=== PATIENT | female | born 1970 | race Hispanic/Latino ===

== ENCOUNTER 2017-11-25 15:57 | Emergency (ER) | payer OTHER, SELFPAY ==
[2017-11-25 17:20] LABS: Absolute Lymphocytes (CBC) 1.7 K/uL (0.7-4.9); Absolute Monocytes 0.5 K/uL (0.1-1.3); Absolute Neutrophil 4.8 K/uL (1.8-8.0); Basophils % 0.4 % (0-1.3); Eosinophils % 0.9 % (0-4.4); Hematocrit 41.6 % (36.0-45.0); Lymphocytes % 24.3 % (15.3-44.8); MCH 33.2 pg (27.0-35.0); MCV 98.4 fL (80-100); Monocytes % 6.7 % (3.3-12.3); RBC Red Blood Cell Count 4.22 M/uL (3.86-4.86)
[2017-11-25 17:24] LABS: Protime INR 0.97
[2017-11-25 17:28] LABS: Urine Blood NEGATIVE (NEG); Urine Glucose NEGATIVE (NEG); Urine Protein NEGATIVE (NEG); Urine Specific Gravity >1.030 (1.005-1.030); Urine pH 5.5 (5.0-7.0)
[2017-11-25] MEDS ORDERED: MORPHINE 4 MG/ML SYR ONE (17:30)
[2017-11-25 17:31] LABS: Bicarbonate 29 mEq/L (21-31); Glucose Level 92 mg/dL (65-120); Lipase 26 U/L (22-51); Potassium 3.7 mEq/L (3.6-5.0); Sodium Level 140 mEq/L (135-145)
[2017-11-25] MEDS ORDERED: ONDANSETRON 4 MG/2 ML VIAL ONE (17:31)
[2017-11-25] MEDS ORDERED: NA CHLORIDE 0.9% 1,000 ML ONE (17:31)
--- NOTE | 2017-11-25 17:32 | RAD REPORT ---
EXAM DESCRIPTION: RAD - Chest Single View - 11/25/2017 5:23 pm CLINICAL HISTORY: Chest pain. COMPARISON: None. FINDINGS: Portable technique limits examination quality. The lungs are grossly clear. The heart is normal in size. No displaced fractures. IMPRESSION: No acute intrathoracic process suspected.
[2017-11-25 17:37] LABS: ALT/SGPT 21 IU/L (10-60); AST/SGOT 23 IU/L (10-42); Albumin 4.2 g/dL (3.2-5.5); Alkaline Phosphatase 61 IU/L (42-121); BUN Blood Urea Nitrogen 17 mg/dL (6-20); Bilirubin Direct 0.1 mg/dL (0-0.2); Bilirubin Total 0.6 mg/dL (0.3-1.2); Creatine Phosphokinase 45 IU/L (22-269); Glomerular Filtration Rate > 90 mL/min (=/>90); Magnesium 1.9 mg/dL (1.8-2.5); Protein, Total 6.9 g/dL (6.0-8.3)
[2017-11-25 17:39] LABS: CKMB Creatine Kinase MB 0.9 ng/ml (0.3-4.0)
--- NOTE | 2017-11-25 19:17 | RAD REPORT ---
EXAM DESCRIPTION: CT - Abdomen Pelvis W Contrast - 11/25/2017 7:02 pm CLINICAL HISTORY: Abdominal pain. Periumbilical pain. Diarrhea since Thursday COMPARISON: None. TECHNIQUE: Computed axial tomography of the abdomen and pelvis was obtained. 100 cc Isovue-300 is ad ministered intravenously. Oral contrast was given. All CT scans are performed using dose optimization technique as appropriate and may include automated exposure control or mA/KV adjustment according to patient size. FINDINGS: The liver, spleen, pancreas, adrenals and kidneys appear unremarkable. The appendix is normal caliber. There is no evidence of diverticulitis . Postsurgical changes involve the stomach. The gallbladder has been removed. The wall of portions of the left colon appear mildly thickened. An 11 millimeter cyst is suspected within the vagina IMPRESSION: Mild thickening of the wall of the left colon probably indicating a mild colitis
--- NOTE | 2017-11-25 19:17 | EDPHYS ---
Physician Documentation [facility] Name: Tiara Reynolds Age: 47 yrs Sex: Female : 1970 Arrival Date: 11/25/2017 Time: 16:02 Bed 13 Private MD: ED Physician Kan Rivera HPI: 11/25 17:03 This 47 yrs old Female presents to ER via Ambulatory with complaints of cristina Abdominal Pain. 17:03 The patient presents with abdominal pain in the upper abdomen, in the lower abdomen, cristina abdominal distention in the epigastric area, in the upper abdomen. Onset: The symptoms/episode began/occurred 3 day(s) ago. The patient presents to the emergency department with diarrhea, abdominal pain, of the right upper quadrant, left upper quadrant, right lower quadrant and left lower quadrant. Onset: The symptoms/episode began/occurred 3 day(s) ago. Possible causes: unknown. The symptoms are aggravated by nothing. The symptoms are alleviated by nothing. Associated signs and symptoms: The patient has no apparent associated signs or symptoms. 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 - Social history:: Smoking status: Patient/guardian denies using tobacco. - Family history:: not pertinent. ROS: 17:03 Constitutional: Negative for fever, chills, and weight loss, Eyes: Negative for injury, cristina pain, redness, and discharge, ENT: Negative for injury, pain, and discharge, Neck: Negative for injury, pain, and swelling, Cardiovascular: Negative for chest pain, palpitations, and edema, Respiratory: Negative for shortness of breath, cough, wheezing, and pleuritic chest pain, Back: Negative for injury and pain, : Negative for injury, bleeding, discharge, and swelling, MS/Extremity: Negative for injury and deformity, Skin: Negative for injury, rash, and discoloration, Neuro: Negative for headache, weakness, numbness, tingling, and seizure, Psych: Negative for depression, anxiety, suicide ideation, homicidal ideation, and hallucinations, Allergy/Immunology: Negative for hives, rash, and allergies, Endocrine: Negative for neck swelling, polydipsia, polyuria, polyphagia, and marked weight changes, Hematologic/Lymphatic: Negative for swollen nodes, abnormal bleeding, and unusual bruising. 17:03 Abdomen/GI: Positive for abdominal pain, diarrhea, of the right upper quadrant, left upper quadrant, right lower quadrant and left lower quadrant. Exam: 17:03 Constitutional: This is a well developed, well nourished patient who is awake, alert, cristina and in no acute distress. Head/Face: Normocephalic, atraumatic. Eyes: Pupils equal round and reactive to light, extra-ocular motions intact. Lids and lashes normal. Conjunctiva and sclera are non-icteric and not injected. Cornea within normal limits. Periorbital areas with no swelling, redness, or edema. ENT: Nares patent. No nasal discharge, no septal abnormalities noted. Tympanic membranes are normal and external auditory canals are clear. Oropharynx with no redness, swelling, or masses, exudates, or evidence of obstruction, uvula midline. Mucous membranes moist. Neck: Trachea midline, no thyromegaly or masses palpated, and no cervical lymphadenopathy. Supple, full range of motion without nuchal rigidity, or vertebral point tenderness. No Meningismus. Chest/axilla: Normal chest wall appearance and motion. Nontender with no deformity. No lesions are appreciated. Cardiovascular: Regular rate and rhythm with a normal S1 and S2. No gallops, murmurs, or rubs. Normal PMI, no JVD. No pulse deficits. Respiratory: Lungs have equal breath sounds bilaterally, clear to auscultation and percussion. No rales, rhonchi or wheezes noted. No increased work of breathing, no retractions or nasal flaring. Back: No spinal tenderness. No costovertebral tenderness. Full range of motion. Female : Normal external genitalia. Skin: Warm, dry with normal turgor. Normal color with no rashes, no lesions, and no evidence of cellulitis. MS/ Extremity: Pulses equal, no cyanosis. Neurovascular intact. Full, normal range of motion. Neuro: Awake and alert, GCS 15, oriented to person, place, time, and situation. Cranial nerves II-XII grossly intact. Motor strength 5/5 in all extremities. Sensory grossly intact. Cerebellar exam normal. Normal gait. Psych: Awake, alert, with orientation to person, place and time. Behavior, mood, and affect are within normal limits. 17:03 Abdomen/GI: Inspection: abdomen appears normal, Bowel sounds: normal, Palpation: mild abdominal tenderness, in the umbilical area, right upper quadrant and left upper quadrant. Vital Signs: 16:17 BP 130 / 81; Pulse 62; Resp 14; Temp 97.9(O); Pulse Ox 100% on R/A; Weight 68.04 kg lk1 (R); Height 5 ft. 2 in. (157.48 cm) (R); Pain 7/10; 17:00 BP 130 / 84; Pulse 63; Resp 16 S; Pulse Ox 100% on R/A; jl7 17:49 BP 132 / 92; Pulse 56; Resp 16 S; Pulse Ox 100% on R/A; jl7 18:30 BP 116 / 79; Pulse 63; Resp 18 S; Pulse Ox 100% on R/A; jl7 19:45 BP 117 / 78; Pulse 83; Resp 16; Pulse Ox 100% ; Pain 0/10; bs1 16:17 Body Mass Index 27.44 (68.04 kg, 157.48 cm) lk1 MDM: 16:33 Patient medically screened. [facility] 17:05 Data reviewed: vital signs, nurses notes, lab test result(s), EKG, radiologic studies, [facility] CT scan, plain films. 11/25 16:38 Order name: Urine Dipstick--Ancillary (enter results); Complete Time: 18:43 11/25 16:38 Order name: Urine --Ancillary (enter results); Complete Time: 18:43 11/25 17:02 Order name: Basic Metabolic Panel; Complete Time: 18:43 [facility] 11/25 17:02 Order name: BNP; Complete Time: 18:43 [facility] 11/25 17:02 Order name: CBC with Diff; Complete Time: 18:43 [facility] 11/25 17:02 Order name: Ckmb; Complete Time: 18:43 [facility] 11/25 17:02 Order name: CPK; Complete Time: 18:43 [facility] 11/25 17:02 Order name: LFT's; Complete Time: 18:43 [facility] 11/25 17:02 Order name: Magnesium; Complete Time: 18:43 [facility] 11/25 17:02 Order name: PT-INR; Complete Time: 18:43 [facility] 11/25 17:02 Order name: Ptt, Activated; Complete Time: 18:43 [facility] 11/25 17:02 Order name: Troponin (emerg Dept Use Only); Complete Time: 18:43 [facility] 11/25 17:02 Order name: Lipase; Complete Time: 18:43 [facility] 11/25 17:02 Order name: Urine Culture [facility] 11/25 17:02 Order name: XRAY Chest (1 view); Complete Time: 18:43 [facility] 11/25 17:02 Order name: EKG; Complete Time: 17:03 [facility] 11/25 17:02 Order name: Cardiac monitoring; Complete Time: 17:22 [facility] 11/25 17:02 Order name: EKG - Nurse/Tech; Complete Time: 17:22 [facility] 11/25 17:02 Order name: IV Saline Lock; Complete Time: 17:07 [facility] 11/25 17:02 Order name: Labs collected and sent; Complete Time: 17:07 [facility] 11/25 17:02 Order name: O2 Per Protocol; Complete Time: 17:07 [facility] 11/25 17:02 Order name: CT Abd/Pelvis - W/Contrast; Complete Time: 19:21 [facility] 11/25 17:06 Order name: Occult Blood [facility] 11/25 17:02 Order name: O2 Sat Monitoring; Complete Time: 17:07 [facility] 11/25 17:02 Order name: Urine Dipstick-Ancillary (obtain specimen); Complete Time: 17:07 [facility] Administered Medications: 17:15 Drug: NS 0.9% 1000 ml Route: IV; Rate: 1 bolus; Site: right antecubital; jl7 20:21 Follow up: Response: No adverse reaction; IV Status: Completed infusion bs1 17:15 Drug: Zofran 4 mg Route: IVP; Site: right antecubital; jl7 18:46 Follow up: Response: No adverse reaction jl7 17:18 Drug: morphine 2 mg Route: IVP; Site: right antecubital; jl7 18:46 Follow up: Response: No adverse reaction jl7 19:29 Drug: Cipro 500 mg Route: PO; bs1 20:20 Follow up: Response: No adverse reaction bs1 19:29 Drug: Flagyl 500 mg Volume: 100 ml; Route: IVPB; Rate: 200 ml/hr; Infused Over: 30 bs1 mins; Site: right antecubital; 20:20 Follow up: Response: No adverse reaction; IV Status: Completed infusion bs1 Disposition: 11/25/17 19:16 Discharged to Home. Impression: Abdominal tenderness, Diarrhea, unspecified, Left sided colitis - mild. - Condition is Stable. - Discharge Instructions: Abdominal Pain, Adult, Food Choices to Help Relieve Diarrhea, Adult, Diarrhea, Abdominal Pain, Adult, [id number], Diarrhea, [id number]. - Prescriptions for Bentyl 20 mg Oral Tablet - take 1 tablet by ORAL route every 6 hours As needed; 20 tablet. Pepcid 20 mg Oral Tablet - take 1 tablet by ORAL route every 12 hours for 10 days; 20 tablet. Flagyl 500 mg Oral Tablet - take 1 tablet by ORAL route every 6 hours for 10 days; 28 tablet. Cipro 500 mg Oral Tablet - take 1 tablet by ORAL route every 12 hours for 7 days; 14 tablet. - Medication Reconciliation Form, Thank You Letter, Antibiotic Education, Prescription Opioid Use form. - Follow up: Private Physician; When: 1 - 2 days; Reason: Recheck today's complaints, Continuance of care, Re-evaluation by your physician. Follow up: Marcus Dahl; When: 2 - 3 days; Reason: Recheck today's complaints, Continuance of care, Re-evaluation by your physician. - Problem is new. - Symptoms have improved. Signatures: Dispatcher [employer] EDKan Ma MD MD cha Kluge, Leah, RN RN lk1 Dylan Hussein, RN RN jl7 Marlys Holley RN RN bs1
--- NOTE | 2017-11-25 19:17 | ER ---
Nurse's Notes [facility] Name: Tiara Reynolds Age: 47 yrs Sex: Female : 1970 Arrival Date: 11/25/2017 Time: 16:02 Bed 13 Private MD: Diagnosis: Abdominal tenderness;Diarrhea, unspecified;Left sided colitis-mild Presentation: 11/25 16:14 Presenting complaint: Patient states: "Thursday (3 days ago) I started with abdominal lk1 pain and diarrhea. I have had it off and on for months and I have not seen a GI doctor. Now the pain is around my belly button and I am having stomach cramps.". Transition of care: patient was not received from another setting of care. Onset of symptoms was November 22, 2017. Care prior to arrival: None. 16:14 Method Of Arrival: Ambulatory lk1 16:14 Acuity: EBONIE 3 lk1 Triage Assessment: 16:16 General: Appears in no apparent distress. Behavior is calm, cooperative, appropriate lk1 for age. Pain: Complains of pain in abdomen Pain currently is 7 out of 10 on a pain scale. GI: Reports cramping, diarrhea, nausea, Patient currently denies vomiting. 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 - Social history:: Smoking status: Patient/guardian denies using tobacco. - Family history:: not pertinent. Screenin:42 Abuse screen: Denies threats or abuse. Denies injuries from another. Nutritional jl7 screening: No deficits noted. Tuberculosis screening: No symptoms or risk factors identified. Fall Risk IV access (20 points). Total Fall Fall Scale indicates No Risk (0-24 pts). Assessment: 16:42 General: Appears in no apparent distress. uncomfortable, Behavior is calm, cooperative, jl7 appropriate for age. Pain: Complains of pain in left upper quadrant Pain radiates to anterior aspect of left lateral abdomen Pain currently is 4 out of 10 on a pain scale. at worst was 7 out of 10 on a pain scale. Quality of pain is described as aching, Pain began 2-3 days ago. Is intermittent. Neuro: Level of Consciousness is awake, alert, obeys commands, Oriented to person, place, time, situation. Cardiovascular: Patient's skin is warm and dry. Respiratory: Airway is patent Respiratory effort is even, unlabored, Respiratory pattern is regular, symmetrical. GI: Abdomen is flat, non-distended, Bowel sounds present X 4 quads. Abd is soft X 4 quads Abdomen is tender to palpation in anterior aspect of left lateral abdomen and right lower quadrant. : No signs and/or symptoms were reported regarding the genitourinary system. EENT: No signs and/or symptoms were reported regarding the EENT system. Derm: Skin is pink, warm \\T\\ dry. Musculoskeletal: No signs and/or symptoms reported regarding the musculoskeletal system. 17:40 Reassessment: Pt finished drinking oral contrast, CT notified. jl7 18:47 Reassessment: Patient and/or family updated on plan of care and expected duration. Pain jl7 level reassessed. Patient is alert, oriented x 3, equal unlabored respirations, skin warm/dry/pink. 19:47 Reassessment: Patient appears in no apparent distress at this time. Patient and/or bs1 family updated on plan of care and expected duration. Pain level reassessed. Patient is alert, oriented x 3, equal unlabored respirations, skin warm/dry/pink. Patient states symptoms have improved. Vital Signs: 16:17 BP 130 / 81; Pulse 62; Resp 14; Temp 97.9(O); Pulse Ox 100% on R/A; Weight 68.04 kg lk1 (R); Height 5 ft. 2 in. (157.48 cm) (R); Pain 7/10; 17:00 BP 130 / 84; Pulse 63; Resp 16 S; Pulse Ox 100% on R/A; jl7 17:49 BP 132 / 92; Pulse 56; Resp 16 S; Pulse Ox 100% on R/A; jl7 18:30 BP 116 / 79; Pulse 63; Resp 18 S; Pulse Ox 100% on R/A; jl7 19:45 BP 117 / 78; Pulse 83; Resp 16; Pulse Ox 100% ; Pain 0/10; bs1 16:17 Body Mass Index 27.44 (68.04 kg, 157.48 cm) lk1 ED Course: 16:02 Patient arrived in ED. mr 16:16 Triage completed. lk1 16:17 Arm band placed on left wrist. lk1 16:26 Kan Rivera MD is Attending Physician. [facility] 16:27 Dylan Hussein, RN is Primary Nurse. jl7 16:36 Patient has correct armband on for positive identification. Placed in gown. Side rails mh5 up X 1. Warm blanket given. 16:36 Urine collected: clean catch specimen, clear. mh5 16:51 Initial lab(s) drawn, by me, held in ED. Inserted saline lock: 20 gauge in right mh5 antecubital area, using aseptic technique. Blood collected. 17:21 X-ray completed. Portable x-ray completed in exam room. Patient tolerated procedure kc2 well. 17:23 XRAY Chest (1 view) In Process Unspecified. EDMS 19:02 CT Abd/Pelvis - W/Contrast In Process Unspecified. EDMS 19:05 Report given to RENU Frankel. jl7 19:16 Marcus Dahl MD is Referral Physician. [facility] 19:54 Primary Nurse role handed off by Dylan Hussein, RENU rg2 20:15 Marlys Holley, RENU is Primary Nurse. bs1 20:19 No provider procedures requiring assistance completed. IV discontinued, bleeding bs1 controlled, No redness/swelling at site. Pressure dressing applied. Administered Medications: 17:15 Drug: NS 0.9% 1000 ml Route: IV; Rate: 1 bolus; Site: right antecubital; jl7 20:21 Follow up: Response: No adverse reaction; IV Status: Completed infusion bs1 17:15 Drug: Zofran 4 mg Route: IVP; Site: right antecubital; jl7 18:46 Follow up: Response: No adverse reaction jl7 17:18 Drug: morphine 2 mg Route: IVP; Site: right antecubital; jl7 18:46 Follow up: Response: No adverse reaction jl7 19:29 Drug: Cipro 500 mg Route: PO; bs1 20:20 Follow up: Response: No adverse reaction bs1 19:29 Drug: Flagyl 500 mg Volume: 100 ml; Route: IVPB; Rate: 200 ml/hr; Infused Over: 30 bs1 mins; Site: right antecubital; 20:20 Follow up: Response: No adverse reaction; IV Status: Completed infusion bs1 Outcome: 19:16 Discharge ordered by . cristina 20:19 Discharged to home ambulatory. bs1 20:19 Condition: stable 20:19 Discharge instructions given to patient, Instructed on discharge instructions, follow up and referral plans. medication usage, Demonstrated understanding of instructions, follow-up care, medications, Prescriptions given X 4. 20:21 Patient left the ED. bs1 Signatures: Dispatcher [employer] EDMS Krzysztof Bailon rg2 Kan Rivera MD MD cha Rivera, Maria mr Kluge, Leah, RN RN lk1 Susie Jain Maria mh5 Leal, Jahala, RN RN jl7 Marlys Holley RN RN bs1
[2017-11-25] MEDS ORDERED: CIPROFLOXACIN HCL 500 MG TAB ONE (19:45)
[2017-11-25] MEDS ORDERED: METRONIDAZOLE 500mg IVPB 500 MG/100 ML BAG IV ONE (19:45)
[2017-11-25 20:26] VITALS: TEMP 97.9; O2SAT 100
[2017-11-25 20:31] VITALS: BP 117/78
--- NOTE | 2017-11-26 10:10 | EKG ---
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
== END 2017-11-25 20:21 | disposition home or self-care (01) ==
LOC: ER 15:57
DX: K51.50 Left sided colitis without complications (principal); R19.7 Diarrhea, unspecified
CPT/HCPCS: 36415; 71045; 74177; 80048; 80076; 81003; 81025; 82550; 82553; 83690; 83735; 83880; 84484; 85025; 85610; 85730; 87086; 87088; 93005; 96361; 96365; 96375; 99284; J2405; J7030; Q9967